=== PATIENT | male | born 1990 | race Caucasian/White ===

== ENCOUNTER 2019-06-29 18:57 | Emergency (ER) | payer SELFPAY ==
[~2019-06-29] VITALS: Ht 180.3 cm; Wt 109.4 kg
[2019-06-29] MEDS ORDERED: SODIUM CHLORIDE 0.9% 1,000ML IVBOLUS ONE (19:30)
[2019-06-29] MEDS ORDERED: SODIUM CHLORIDE FLUSH 10ML SYR IVF ONE (19:30)
--- NOTE | 2019-06-29 19:45 | NUR ---
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 CXR DONE, IV START AND LABS DRAWN AND SENT, PT TO US VIA STRETCHER AT THIS TIME.
[2019-06-29 19:55] LABS: BASOPHILS # (AUTO) 0.05 x10^3/uL (0-0.1); BASOPHILS % (AUTO) 1 % (0-1); EOSINOPHILS # (AUTO) 0.18 x10^3/uL (0-0.4); EOSINOPHILS % (AUTO) 2 % (1-7); LYMPHOCYTES # (AUTO) 2.19 x10^3/uL (1-3.4); LYMPHOCYTES % (AUTO) 21 % (22-44); MD NO; MEAN CORPUSCULAR HEMOGLOBIN 31.3 pg (27.5-34.5); MEAN CORPUSCULAR HGB CONC 32.7 g/dL (33.2-36.2); MEAN CORPUSCULAR VOLUME 95.6 fL (81-97); MEAN PLATELET VOLUME 8.4 fL (7.4-10.4); MONOCYTES # (AUTO) 0.68 x10^3/uL (0.2-0.8); MONOCYTES % (AUTO) 7 % (2-9); NEUTROPHILS # (AUTO) 7.35 x10^3/uL (1.8-6.8); NEUTROPHILS % (AUTO) 70 % (42-75); PLATELET COUNT 315 x10^3/uL (130-400); RED CELL DISTRIBUTION WIDTH 13.8 % (9.4-14.8)
[2019-06-29] MEDS ORDERED: OMNIPAQUE 350 MG/ML, 100ML BOTTLE ONE (20:00)
[2019-06-29 20:03] LABS: INTERNATIONAL NORMALIZED RATIO 1.07 (0.93-1.1); PROTHROMBIN TIME 11.4 Seconds (9.6-11.5)
[2019-06-29 20:04] LABS: ALANINE AMINOTRANSFERASE 94 U/L (12-78); ALBUMIN 2.6 g/dL (3.4-5.0); ANION GAP 7 mmol/L (5-15); CALCIUM 7.8 mg/dL (8.5-10.1); CHLORIDE 105 mmol/L (98-107); CREATININE 1.47 mg/dL (0.7-1.3)
[2019-06-29 20:09] LABS: ALKALINE PHOSPHATASE 147 U/L (45-117); BILIRUBIN,TOTAL 0.5 mg/dL (0.2-1.0); TROPONIN I 0.028 ng/mL (0.000-0.045)
--- NOTE | 2019-06-29 20:17 | NUR ---
RETURN FROM US, TO BATHROOM FOR STOOL SPECIMEN PER MD REQUEST
--- NOTE | 2019-06-29 20:42 | NUR ---
MD REVIEW RECORDS AND PT WAS ON THREE HTN MEDS AND ASA NO BLOOD THINNERS PER SE
--- NOTE | 2019-06-29 20:47 | NUR ---
REPORT RECEIVED AND CARE ASSUMED. PT TO CT VIA [facility]. WILL RECHECK UPON RETURN.
--- NOTE | 2019-06-29 21:05 | NUR ---
PT RETURNED FROM CT. DENIES NEEDS AT THIS TIME. SINUS TACHY ON MONITOR AND MILD HTN NOTED--PT WITH HX OF HTN AND HAS NOT BEEN TAKING HIS MEDS. DR PAGE IN TO [facility] PT STOOL. PER HALLIE, [facility] NEG. CALL LIGHT IN REACH. AWAITING CT RESULTS.
[2019-06-29] MEDS ORDERED: FUROSEMIDE 40 MG/4 ML IV ONE (21:30)
[2019-06-29] MEDS ORDERED: FUROSEMIDE 40 MG/4 ML ONE (21:46)
[2019-06-29 22:34] VITALS: BP 147/108
== END 2019-06-29 22:36 | disposition home or self-care (01) ==
LOC: ED 22:20
DX: I11.0 Hypertensive heart disease with heart failure (principal); I50.9 Heart failure, unspecified; R05 Cough; R11.10 Vomiting, unspecified; R00.0 Tachycardia, unspecified; J18.9 Pneumonia, unspecified organism
CPT/HCPCS: 36415; 71045; 71275; 80053; 83605; 83880; 84484; 85025; 85610; 85730; 93005; 93971; 96361; 96374; 99285; J1940; J7030; Q9967

== ENCOUNTER 2020-02-17 09:37 | Emergency (ER) | payer SELFPAY ==
[~2020-02-17] VITALS: Ht 180.3 cm; Wt 128.0 kg
[2020-02-17] MEDS ORDERED: NITROGLYCERIN OINT 2%, 1GM TP ONE ×3 (09:48→16:00)
[2020-02-17] MEDS ORDERED: ASPIRIN 81 MG TABLET CHEW ONE (09:55)
[2020-02-17] MEDS ORDERED: METOPROLOL 1 MG/ML, 5ML ONE (09:55)
[2020-02-17] MEDS ORDERED: LISINOPRIL 20 MG TABLET ONE (09:55)
[2020-02-17] MEDS ORDERED: ASPIRIN 81 MG TABLET CHEW PO ONE (10:00)
[2020-02-17] MEDS ORDERED: LISINOPRIL 20 MG TABLET PO ONE (10:00)
[2020-02-17] MEDS ORDERED: METOPROLOL 1 MG/ML, 5ML IVPush PRN (10:00)
[2020-02-17 10:21] LABS: BASOPHILS % (AUTO) 1 % (0-1); EOSINOPHILS % (AUTO) 1 % (1-7); LYMPHOCYTES % (AUTO) 16 % (22-44); MEAN CORPUSCULAR HEMOGLOBIN 32.1 pg (27.5-34.5); MEAN CORPUSCULAR HGB CONC 33.1 g/dL (33.2-36.2); MEAN PLATELET VOLUME 8.8 fL (7.4-10.4); MONOCYTES % (AUTO) 6 % (2-9); NEUTROPHILS % (AUTO) 77 % (42-75); PLATELET COUNT 323 x10^3/uL (130-400); RED BLOOD COUNT 5.13 x10^6/uL (4.38-5.82); RED CELL DISTRIBUTION WIDTH 13.1 % (9.4-14.8)
[2020-02-17 10:30] LABS: ALBUMIN 2.6 g/dL (3.4-5.0); ANION GAP 9 mmol/L (5-15); CALCIUM 8.5 mg/dL (8.5-10.1); CHLORIDE 106 mmol/L (98-107)
[2020-02-17 10:35] LABS: ALANINE AMINOTRANSFERASE 150 U/L (12-78); ALKALINE PHOSPHATASE 121 U/L (45-117); BILIRUBIN,TOTAL 2.2 mg/dL (0.2-1.0); TOTAL PROTEIN 5.9 g/dL (6.4-8.2); TROPONIN I 0.028 ng/mL (0.000-0.045)
--- NOTE | 2020-02-17 10:38 | NUR ---
PT CAME IN WANTING TO GET A MED REFILL FOR HIS HTN MEDS. PT HAS HX OF CHF. IT WAS FOUND IN TRIAGE TO BE HYPERTENSIVE. PT MEDICATED PER JUL. BP STABLIZED. IV STARTED. LABS DRAWN. HELD NITRO PASTE PER MD VERBAL ORDER AFTER BP CAME DOWN
[2020-02-17 10:45] LABS: MD SCAN
[2020-02-17] MEDS ORDERED: FUROSEMIDE 40 MG/4 ML IV ONE (11:00)
--- NOTE | 2020-02-17 11:17 | NUR ---
pt resting in [facility]. nad. vss
[2020-02-17] MEDS ORDERED: FUROSEMIDE 40 MG/4 ML ONE (11:42)
[2020-02-17 12:00] VITALS: BP 140/89
--- NOTE | 2020-02-17 12:18 | NUR ---
PT DID NOT WANT TO BE ADMITTED. MD IS BEDSIDE. MD EXPLAINED TO HIM THAT HE COULD IF HE DOES NOT STAY. PT STILL DECIDED TO LEAVE
== END 2020-02-17 12:20 | disposition home or self-care (01) ==
LOC: ED 10:37
DX: R60.0 Localized edema (principal); Z76.0 Encounter for issue of repeat prescription; I11.0 Hypertensive heart disease with heart failure; I50.9 Heart failure, unspecified; R00.0 Tachycardia, unspecified; R94.31 Abnormal electrocardiogram [ECG] [EKG]; Z72.9 Problem related to lifestyle, unspecified
CPT/HCPCS: 36415; 71045; 80053; 83880; 84484; 85025; 93005; 96374; 96375; 99285; J1940

== ENCOUNTER 2020-03-05 09:41 | Emergency (ER) | payer SELFPAY ==
[~2020-03-05] VITALS: Ht 180.3 cm; Wt 119.0 kg
--- NOTE | 2020-03-05 09:50 | NUR ---
NO ANSWER IN LOBBY.
--- NOTE | 2020-03-05 10:23 | NUR ---
pt placed on cardiac, nibp, and o2 monitoring. ekg performed by this rn. iv access obtained. labs completed at this time. call light in reach.
[2020-03-05 10:38] LABS: BASOPHILS % (AUTO) 1 % (0-1); EOSINOPHILS % (AUTO) 1 % (1-7); LYMPHOCYTES % (AUTO) 22 % (22-44); MEAN CORPUSCULAR HEMOGLOBIN 31.3 pg (27.5-34.5); MEAN CORPUSCULAR HGB CONC 32.3 g/dL (33.2-36.2); MEAN PLATELET VOLUME 8.8 fL (7.4-10.4); MONOCYTES % (AUTO) 6 % (2-9); NEUTROPHILS % (AUTO) 70 % (42-75); PLATELET COUNT 305 x10^3/uL (130-400); RED BLOOD COUNT 4.85 x10^6/uL (4.38-5.82); RED CELL DISTRIBUTION WIDTH 13.5 % (9.4-14.8)
[2020-03-05 10:39] LABS: MD NO
[2020-03-05 10:44] LABS: ALANINE AMINOTRANSFERASE 29 U/L (12-78); ALBUMIN 2.8 g/dL (3.4-5.0); ANION GAP 7 mmol/L (5-15); CALCIUM 8.9 mg/dL (8.5-10.1); CHLORIDE 108 mmol/L (98-107); CREATININE 1.74 mg/dL (0.7-1.3)
[2020-03-05 10:49] LABS: ALKALINE PHOSPHATASE 102 U/L (45-117); BILIRUBIN,TOTAL 0.8 mg/dL (0.2-1.0); TOTAL PROTEIN 6.6 g/dL (6.4-8.2)
[2020-03-05 11:55] VITALS: BP 138/111
== END 2020-03-05 11:57 | disposition home or self-care (01) ==
LOC: ED 10:05
DX: I82.431 Acute embolism and thrombosis of right popliteal vein (principal); I82.441 Acute embolism and thrombosis of right tibial vein; R60.0 Localized edema; I44.5 Left posterior fascicular block; R94.31 Abnormal electrocardiogram [ECG] [EKG]; I11.0 Hypertensive heart disease with heart failure; I50.9 Heart failure, unspecified
CPT/HCPCS: 36415; 80053; 83880; 85025; 93005; 93970; 99285